=== PATIENT | female | born 2000 | race Caucasian/White ===

== ENCOUNTER 2024-04-16 16:53 | Emergency (ER) | payer OTHER ==
[~2024-04-16] VITALS: Ht 167.6 cm; Wt 75.3 kg
[2024-04-16 19:17] LABS: BASOPHILS % (AUTO) 0.3 % (0.0-2.0); EOSINOPHILS % (AUTO) 0.5 % (0.0-7.0); HEMATOCRIT 41.3 % (31.2-41.9); HEMOGLOBIN 14.5 g/dL (10.9-14.3); LYMPHOCYTES # (AUTO) 2.4 K/uL (0.8-4.8); LYMPHOCYTES % (AUTO) 23.4 % (20.5-51.5); MEAN CORPUSCULAR HEMOGLOBIN 31.2 uug (24.7-32.8); MEAN CORPUSCULAR HGB CONC 35 g/dL (32.3-35.6); MEAN CORPUSCULAR VOLUME 88.9 fL (75.5-95.3); MONOCYTES # (AUTO) 0.6 K/uL (0.1-1.30); MONOCYTES % (AUTO) 6.2 % (0.0-11.0); NEUTROPHILS # (AUTO) 7.1 K/uL (1.8-8.9); NEUTROPHILS % (AUTO) 69.6 % (38.5-71.5); PLATELET COUNT (AUTO) 195 K/uL (179-408); RED BLOOD CELL COUNT(AUTO) 4.65 MIL/uL (3.63-4.92); RED CELL DISTRIBUTION WIDTH 12.7 % (12.3-17.7); WHITE BLOOD COUNT (AUTO) 10.1 K/uL (3.8-11.8)
[2024-04-16 19:19] LABS: *BILIRUBIN,URIN 1+ (NEGATIVE); *BLOOD, URINE NEGATIVE (NEGATIVE); *CLARITY,URINE CLEAR (CLEAR); *KETONES,URINE 1+ (NEGATIVE); *PROTEIN,URINE 1+ (NEGATIVE); *UROBILINOGEN,URINE 0.2 E.U./dl (NORMAL); LEUKOCYTE ESTERASE ,URINE NEGATIVE (NEGATIVE); NITRITE, URINE NEGATIVE (NEGATIVE); UGLUCOSE NEGATIVE (NEGATIVE)
[2024-04-16 19:23] LABS: DIFFERENTIAL COMMENT 1
[2024-04-16 19:24] LABS: *COLOR,URINE DARK YELLOW (YELLOW)
[2024-04-16 19:27] LABS: CALCIUM 9.3 mg/dL (8.5-10.1); CARBON DIOXIDE 26 mmol/L (21-32); CHLORIDE 103 mmol/L (98-107); CREATININE 0.8 mg/dL (0.6-1.3); GLUCOSE 85 mg/dL (74-106); SODIUM SERUM 137 mmol/L (136-145); UREA NITROGEN, BLOOD 14 mg/dL (7-18)
[2024-04-16 19:30] LABS: BACTERIA,URINE FEW /HPF (NONE SEEN); RBC,URINE 0-3 /HPF (0-3); SQUAMOUS EPITHELIAL CELL,UR FEW /HPF (NONE SEEN); WBC,URINE 0-3 /HPF (0-3)
[2024-04-16 19:33] LABS: ALANINE AMINOTRANSFERASE 7 U/L (14-59); ALBUMIN 4.2 g/dL (3.4-5.0); ALKALINE PHOSPHATASE 92 U/L (50-136); ASPARTATE AMINOTRANSFERASE 12 U/L (15-37); BILIRUBIN,DIRECT 0.2 mg/dL (0.0-0.2); LIPASE 38 U/L (16-77); TOTAL PROTEIN, SERUM 7.4 g/dL (6.4-8.2)
[2024-04-16 19:42] LABS: PREGNANCY TEST SERUM QUAN < 1 miul/L (0-6)
[2024-04-16 21:02] VITALS: BP 125/66; TEMP 97.7; O2SAT 97
[2024-04-17] MEDS ORDERED: HYDR-3972 PO (16:17)
[2024-04-17] MEDS ORDERED: PYRI200T10 PO (16:17)
== END 2024-04-16 21:00 | disposition home or self-care (01) ==
LOC: ER 16:53
DX: R10.31 Right lower quadrant pain (principal); R10.2 Pelvic and perineal pain; R07.9 Chest pain, unspecified; R06.00 Dyspnea, unspecified; Z20.822 Contact with and (suspected) exposure to COVID-19
CPT/HCPCS: 36415; 71045; 83690; 85025; 85730; A4606; A4663

== ENCOUNTER 2024-04-17 13:48 | Emergency (ER) | payer OTHER ==
[~2024-04-17] VITALS: Ht 167.6 cm; Wt 75.3 kg
[2024-04-17] MEDS ORDERED: MORPHINE SULFATE 4 MG/1 ML DISP.SYRIN ONE (15:22)
[2024-04-17] MEDS ORDERED: ONDANSETRON ODT 4 MG TAB.RAPDIS ONE (15:22)
[2024-04-17] MEDS: MORPHINE SULFATE 4 MG/1 ML DISP.SYRIN IM ONE (15:30)
[2024-04-17] MEDS: ONDANSETRON ODT 4 MG TAB.RAPDIS SL ONE (15:41)
[2024-04-17] MEDS ORDERED: PYRIDOXINE HCL 100 MG/1 ML VIAL ONE (16:16)
[2024-04-17] MEDS ORDERED: HYDR-3972 PO (16:17)
[2024-04-17] MEDS: PYRIDOXINE HCL 100 MG TABLET PO STA (16:17)
[2024-04-17] MEDS ORDERED: PYRI200T10 PO (16:17)
[2024-04-17] MEDS: PYRIDOXINE HCL 100 MG/1 ML VIAL IM ONE (16:21)
[2024-04-17 17:03] VITALS: BP 109/70; O2SAT 99
== END 2024-04-17 17:04 | disposition home or self-care (01) ==
LOC: ER 13:48
DX: R10.31 Right lower quadrant pain (principal); M79.651 Pain in right thigh; Z79.899 Other long term (current) drug therapy
CPT/HCPCS: 99284; 96372 ×2; J3415; J2270; A4606; A4663; Q0162